=== PATIENT | male | born 1990 | race Caucasian/White ===

== ENCOUNTER 2018-10-15 13:12 | Inpatient (IN) | payer OTHER ==
--- NOTE | 2018-10-15 14:47 | ED ---
Abdominal Pain/Male - HPI Summary HPI Summary: Pt is a 28 y/o male who presents to the ED c/o abdominal pain. For this past week, hes had intermittent LUQ pain that lasts for about 1 hour. The pain feels like sharp bloating, and is almost described as hunger pangs. Each episode happens in the morning, about 7-8 hours after eating. Pt was woken up at 3:00 this morning with the abdominal pain radiating to his left upper back. The pain is accompanied by N/V. He denies any urinary sx or hematochezia. The pain was initially rated a 4/10 in severity, but has since decreased. The pain is made worse with eating, and is better when lying flat or with heat. He has taken Peptobismol, but wasnt able to keep it down. He denies any hx of kidney stones, or abdominal surgery. Pt is accompanied by his sister. BP 141/93 while in room. - History of Current Complaint Chief Complaint: EDAbdPain Stated Complaint: ABD PAIN Time Seen by Provider: 10/15/18 14:28 Hx Obtained From: Patient Onset/Duration: Gradual Onset, Lasting Days - Past week, Still Present Timing: Intermittent Severity Currently: Moderate Pain Intensity: 4 Pain Scale Used: 0-10 Numeric Location: Discrete At: LUQ Radiates: Yes Radiates to: Back Character: Sharp, Other: - bloating Aggravating Factor(s): Food Alleviating Factor(s): Other: - lying flat Associated Signs And Symptoms: Positive: Nausea, Vomiting. Negative: Urinary Symptoms - Allergies/Home Medications Allergies/Adverse Reactions: Allergies Allergy/AdvReac Type Severity Reaction Status Date / Time No Known Allergies Allergy Verified 10/15/18 13:20 Home Medications: Home Medications Dextroamphetamine/Amphetamine [Adderall Xr 20 mg Capsule] 40 mg PO DAILY [History Confirmed 10/15/18] Venlafaxine EXT RELEASE CAP* [Effexor Xr CAP*] 45 mg DAILY 10/15/18 [History Confirmed 10/15/18] PMH/Surg Hx/FS Hx/Imm Hx History: Denies: Hx Kidney Stones Psychiatric History: Reports: Hx Anxiety, Hx Attention Deficit Hyperactivity Disorder, Hx Depression Infectious Disease History: No Infectious Disease History: Denies: Traveled Outside the [place] in Last 30 Days - Family History Known Family History: Positive: Hypertension, Other - hypotension - Social History Alcohol Use: Occasionally Hx Substance Use: No Substance Use Type: Reports: None Hx Tobacco Use: No Smoking Status (MU): Never Smoked Tobacco Review of Systems Positive: Abdominal Pain, Vomiting, Nausea. Negative: Other - hematochezia Genitourinary: Negative All Other Systems Reviewed And Are Negative: Yes Physical Exam - Summary Physical Exam Summary: Appearance: Well-appearing, moderate pain distress, well-nourished Skin: Warm, color reflects adequate perfusion, dry Head: Normal Head/Face inspection, atraumatic Eyes: Conjunctiva clear ENT: Normal inspection Neck: Supple, no nodes, no JVD Respiratory: Lungs clear, normal breath sounds, no respiratory distress Cardio: RRR, No murmur, pulses normal, brisk capillary refill Abdomen: Soft, LUQ tenderness Bowel sounds: Present Musculoskeletal: Strength Intact/ROM intact, no calf tenderness, no edema. Psychological: Normal Neuro: Alert, muscle tone normal, no focal deficit Triage Information Reviewed: Yes Vital Signs On Initial Exam: Initial Vitals Temp Pulse Resp BP Pulse Ox 97.3 F 72 18 145/91 100 10/15/18 13:22 10/15/18 13:22 10/15/18 13:22 10/15/18 13:22 10/15/18 13:22 Vital Signs Reviewed: Yes Diagnostics - Vital Signs Vital Signs Temp Pulse Resp BP Pulse Ox 10/15/18 14:12 72 141/89 97 10/15/18 14:00 84 97 10/15/18 13:42 69 146/98 98 10/15/18 13:41 66 97 10/15/18 13:22 97.3 F 72 18 145/91 100 - Laboratory Result Diagrams: 10/15/18 15:36 10/15/18 15:36 Lab Statement: Any lab studies that have been ordered have been reviewed, and results considered in the medical decision making process. - CT CT A/P CT Interpretation Completed By: Radiologist Summary of CT Findings: The constellation of findings is highly suspicious for acute cholecystitis taking into account the clinical context. Consider ultrasound to further assess for presence of CT occult stones. ED physician reviewed radiology report. - Ultrasound No standard instances Ultrasound Interpretation Completed By: Radiologist Summary of Ultrasound Findings: Gallbladder US: There is a large echogenic calculus in the gallbladder neck which is nonmobile and there is sludge consistent with cholelithiasis. There is abnormal gallbladder wall thickening measuring up to 5 mm and pericholecystic fluid appears to be present. The technologist did not document whether or not there was a positive sonographic Roth sign, however the above findings are suspicious for acute cholecystitis. ED physician reviewed radiology report. Re-Evaluation - Re-Evaluation First Eval Re-Evaluation Time: 18:11 Change: Unchanged Comment: Informed pt of US results. Pain level 1-2/10. Last thing to eat was a hamburger last night. Abdominal Pain Fem Course/Dx - Course Course Of Treatment: Pt is a 28 y/o male who presents to the ED c/o abdominal pain. For this past week, hes had intermittent LUQ pain that lasts for about 1 hour. The pain feels like sharp bloating, and is almost described as hunger pangs. Each episode happens in the morning, about 7-8 hours after eating. Pt was woken up at 3:00 this morning with the abdominal pain radiating to his left upper back. The pain is accompanied by N/V. He denies any urinary sx or hematochezia. A physical exam revealed LUQ tenderness. A CT A/P revealed The constellation of findings is highly suspicious for acute cholecystitis taking into account the clinical context. Consider ultrasound to further assess for presence of CT occult stones. A gallbladder US revealed There is a large echogenic calculus in the gallbladder neck which is nonmobile and there is sludge consistent with cholelithiasis. There is abnormal gallbladder wall thickening measuring up to 5 mm and pericholecystic fluid appears to be present. The technologist did not document whether or not there was a positive sonographic Roth sign, however the above findings are suspicious for acute cholecystitis. UA and bloodwork reviewed. Final dx is acute cholecystitis. Pt will be admitted to Dr. Langston for surgery tomorrow. - Diagnoses Provider Diagnoses: Acute cholecystitis - Provider Notifications Discussed Care Of Patient With: Franki Barnett Time Discussed With Above Provider: 17:39 Instructed by Provider To: Other - Pt has acute cholecystitis, and Dr. Barnett suggests calling surgery. At 18:[address] Langston, who gives the pt the option to have surgery today or next week. She accepts pt for admission, and he will have surgery tomorrow. Discharge - Sign-Out/Discharge Documenting (check all that apply): Patient Departure - Admit - Discharge Plan Condition: Stable Disposition: ADMITTED TO [facility] Referrals: Ramon Reece DO [Primary Care Provider] - - Attestation Statements Document Initiated by Scribe: Yes Documenting Scribe: Lula Bowie Provider For Whom Scribe is Documenting (Include Credential): Rosa Morgan MD Scribe Attestation: Lula Costa, scribed for Rosa Morgan MD on 10/15/18 at 1909. Status of Scribe Document: Ready
[2018-10-15] MEDS ORDERED: Ondansetron INJ* 2 MG/ML VIAL IV ONE (14:57)
[2018-10-15] MEDS ORDERED: Ketorolac INJ* 30 MG/ML 1 ML VIAL IV PUSH ONE (14:59)
[2018-10-15] MEDS ORDERED: NS 0.9% 1000 ML* 2,000 ML IV SCH (15:00)
[2018-10-15 15:47] LABS: ABS Basophils 0 10^3/ul (0-0.2); ABS Eosinophils 0 10^3/ul (0-0.6); ABS Lymphocytes 1.3 10^3/ul (1.0-4.8); ABS Monocytes 0.6 10^3/ul (0-0.8); ABS Neutrophils 8.8 10^3/ul (1.5-7.7); ABS Nucleated RBC 0 10^3/ul; Eosinophil % 0.4 %; Hematocrit 50 % (42-52); Hemoglobin 17.4 g/dl (14.0-18.0); Lymphocyte % 12.4 %; Mean Corpuscular HGB Conc 35 g/dl (31-36); Mean Corpuscular Hemoglobin 32 pg (27-31); Mean Corpuscular Volume 93 fL (80-94); Mean Platelet Volume 7.4 fL (7.4-10.4); Nucleated Red Blood Cells % 0; Platelet Count 323 10^3/ul (150-450); Red Blood Count 5.41 10^6/ul (4.00-5.40); Red Cell Distribution Width 13 % (10.5-15); White Blood Count 10.9 10^3/ul (3.5-10.8)
[2018-10-15 15:53] LABS: INR 0.9 (0.77-1.02)
[2018-10-15 16:04] LABS: Albumin 4.7 g/dL (3.2-5.2); Albumin/Globulin Ratio 1.7 (1-3); BUN/Creatinine Ratio 11.6 (8-20); C Reactive Protein 4.94 mg/L (<8.01); Calcium 9.9 mg/dL (8.6-10.3); EGFR Non-African American 105.9 (>60); Globulin 2.8 g/dL (2-4); Magnesium 2.2 mg/dL (1.9-2.7); Potassium 4.6 mmol/L (3.5-5.0); Total Bilirubin 0.4 mg/dL (0.2-1.0); Total Protein 7.5 g/dL (6.4-8.9)
[2018-10-15 16:55] LABS: Urine Appearance Clear; Urine Bilirubin Negative (Negative); Urine Blood Negative (Negative); Urine Color Straw; Urine Glucose Negative (Negative); Urine Ketones Negative (Negative); Urine Nitrite Negative (Negative); Urine Protein Negative (Negative); Urine Urobilinogen Negative (Negative)
[2018-10-15] MEDS ORDERED: Iohexol 300* (CONTRAST) 10 ML SDV IV ONE (17:09)
[2018-10-15] MEDS ORDERED: Levofloxacin 500 MG IVPREMIX(* 500 MG/100 ML BAG IVPB ONE (18:38)
[2018-10-15] MEDS ORDERED: metroNIDAZOLE IV 500 MG/100ML* 500 MG/100 ML BAG IVPB ONE (18:39)
[2018-10-15] MEDS ORDERED: Ketorolac INJ* 15 MG/ML 1 ML VIAL IV PUSH PRN (18:55)
[2018-10-15] MEDS ORDERED: Ondansetron INJ* 2 MG/ML VIAL IV PRN (18:55)
[2018-10-15] MEDS ORDERED: HYDROmorphone INJ* 0.5 MG/0.5 ML SYRINGE IV PRN (18:55)
[2018-10-15] MEDS: Lactated Ringers 1000 ML Bag* 1,000 ML IV SCH (20:40)
[2018-10-16] MEDS: metroNIDAZOLE IV 500 MG/100ML* 500 MG/100 ML BAG IVPB SCH ×2 (03:14→12:08)
[2018-10-16] MEDS ORDERED: Buffered Lidocaine 0.9% SYRIN* 5 ML/SYR SYRINGE INTRADERM ONE (10:47)
[2018-10-16] MEDS ORDERED: Lactated Ringers 1000 ML Bag* 1,000 ML IV SCH (11:00)
--- NOTE | 2018-10-16 11:40 | PN ---
Progress Note - Progress Note Date of Service: 10/16/18 Note: Surgery Progress Note: S: Patient doing well, no pain, no nausea, no emesis O: Vital Signs: Temp Pulse Resp BP Pulse Ox 98.9 F 86 17 112/64 94 10/16/18 08:30 10/16/18 08:30 10/16/18 08:30 10/16/18 08:30 10/16/18 08:30 Laboratory Results - last 24 hr 10/15/18 10/15/18 10/15/18 15:36 15:36 15:36 WBC 10.9 H RBC 5.41 H Hgb 17.4 Hct 50 MCV 93 MCH 32 H MCHC 35 RDW 13 Plt Count 323 MPV 7.4 Neut % (Auto) 81.4 Lymph % (Auto) 12.4 Hopkins % (Auto) 5.5 Eos % (Auto) 0.4 Baso % (Auto) 0.3 Absolute Neuts (auto) 8.8 H Absolute Lymphs (auto) 1.3 Absolute Monos (auto) 0.6 Absolute Eos (auto) 0 Absolute Basos (auto) 0 Absolute Nucleated RBC 0 Nucleated RBC % 0 INR (Anticoag Therapy) 0.90 Sodium 139 Potassium 4.6 Chloride 104 Carbon Dioxide 30 Anion Gap 5 BUN 10 Creatinine 0.86 Est GFR ( Amer) 128.1 Est GFR (Non-Af Amer) 105.9 BUN/Creatinine Ratio 11.6 Glucose 109 H Lactic Acid Calcium 9.9 Magnesium 2.2 Total Bilirubin 0.40 AST 20 ALT 37 Alkaline Phosphatase 66 Total Creatine Kinase 122 Troponin I 0.00 C-Reactive Protein 4.94 Total Protein 7.5 Albumin 4.7 Globulin 2.8 Albumin/Globulin Ratio 1.7 Amylase 33 Lipase 23 Urine Color Urine Appearance Urine pH Ur Specific Exira Urine Protein Urine Ketones Urine Blood Urine Nitrate Urine Bilirubin Urine Urobilinogen Ur Leukocyte Esterase Urine Glucose 10/15/18 10/15/18 15:36 16:45 WBC RBC Hgb Hct MCV MCH MCHC RDW Plt Count MPV Neut % (Auto) Lymph % (Auto) Hopkins % (Auto) Eos % (Auto) Baso % (Auto) Absolute Neuts (auto) Absolute Lymphs (auto) Absolute Monos (auto) Absolute Eos (auto) Absolute Basos (auto) Absolute Nucleated RBC Nucleated RBC % INR (Anticoag Therapy) Sodium Potassium Chloride Carbon Dioxide Anion Gap BUN Creatinine Est GFR ( Amer) Est GFR (Non-Af Amer) BUN/Creatinine Ratio Glucose Lactic Acid 1.3 Calcium Magnesium Total Bilirubin AST ALT Alkaline Phosphatase Total Creatine Kinase Troponin I C-Reactive Protein Total Protein Albumin Globulin Albumin/Globulin Ratio Amylase Lipase Urine Color Straw Urine Appearance Clear Urine pH 6.0 Ur Specific Exira 1.010 Urine Protein Negative Urine Ketones Negative Urine Blood Negative Urine Nitrate Negative Urine Bilirubin Negative Urine Urobilinogen Negative Ur Leukocyte Esterase Negative Urine Glucose Negative Intake & Output 10/15/18 10/16/18 10/16/18 22:59 06:59 14:59 Intake Total 200 0 Output Total 0 500 Balance 200 -500 Weight 200 lb 200 lb Intake: IV Fluids 200 ABX - FLAGYL 100 ABX - LEVOFLOXACIN 100 Oral 0 0 Output: Urine 0 500 Abd: soft, NTND A/P: 28 M with acute cholecystitis - OR for lap ko today
[2018-10-16] MEDS: Lactated Ringers 1000 ML Bag* 1,000 ML IV SCH (12:09)
--- NOTE | 2018-10-16 13:38 | HP ---
HISTORY AND PHYSICAL: DATE OF ADMISSION: 10/15/18 SERVICE: General Surgery. ATTENDING SURGEON: Dr. Joanna Langston. ADMISSION DIAGNOSIS: Acute cholecystitis. HISTORY OF PRESENT ILLNESS: Mr. Zuniga is a 28-year-old gentleman who came to the emergency room complaining of 1 day of severe abdominal pain. He complained mostly of having left upper quadrant abdominal pain. He does endorse for the past week having the same intermittent abdominal pain as well as intermittent nausea, vomiting every 1 to 2 days. Prior to this, he has never had this type of pain before. The patient said yesterday he did vomit several times prior to coming to the emergency room; however, after he came in to the emergency room and received some pain medications, he has felt better and he does not have any pain currently. In the emergency room, he had imaging done that showed thickening of the gallbladder wall as well as a large gallstone in the neck of the gallbladder. PAST MEDICAL HISTORY: None. PAST SURGICAL HISTORY: Left knee arthroscopy as a teenager. MEDICATIONS: 1. Adderall 40 mg p.o. daily. 2. Effexor 45 mg p.o. daily. ALLERGIES: No known drug allergies. FAMILY HISTORY: Positive for hypertension. SOCIAL HISTORY: Denies smoking. No recreational drug use. Occasional alcohol. REVIEW OF SYSTEMS: Negative except for previous abdominal pain, now no abdominal pain. PHYSICAL EXAMINATION VITAL SIGNS: Temperature is 98.9, pulse is 86, respiratory rate is 17, O2 sat is 94% O2 on room air, blood pressure is 112/64. HEENT: Normocephalic, atraumatic. RESPIRATORY: No increased work of breathing. ABDOMEN: Soft, nontender, nondistended. EXTREMITIES: No edema. LABORATORY DATA: Laboratory values on 10/15/18, white blood cell count of 10.9 , hemoglobin 17.4, hematocrit is 50, platelets are 323. Sodium is 139, potassium is 4.6, chloride is 104, CO2 is 30, BUN is 10, creatinine is 0.86, glucose is 109. Total bilirubin is 0.4. AST is 20, ALT is 37, alkaline phosphatase is 66. Amylase is 33, lipase is 23. RADIOLOGY: On 10/15/18, CT abdomen and pelvis, impression: The consultation and findings are highly suspicious for acute cholecystitis, the gallbladder is distended with thickened wall and pericholecystic fluid, no biliary dilatation is evident, no conspicuous calcified gallbladder or common duct stones, unremarkable pancreas. Right upper quadrant ultrasound on 10/15/18, there is a large echogenic calculus in the gallbladder neck which is nonmobile, and there is sludge consistent with cholelithiasis, there is abnormal gallbladder wall thickening measuring up to 5 mm, and pericholecystic fluid appears to be present. The common bile duct is 3 mm with no visible choledocholithiasis. ASSESSMENT AND PLAN: Mr. Zuniga is a 28-year-old gentleman with a history of left upper quadrant abdominal pain for 1 week as well as nausea and vomiting , who came to the emergency room and was found to have normal LFTs and a very mildly elevated white count of 10.9 and imaging on right upper quadrant ultrasound as well as CT scan was consistent with acute cholecystitis and a fairly large gallstone in the neck of the gallbladder, confirming a diagnosis of acute cholecystitis. The patient was admitted for IV antibiotics and he has been n.p.o. after midnight. Plan is to perform a laparoscopic cholecystectomy today. I reviewed the risks, benefits, and alternatives of the surgery with the patient. The risks included but are not limited to bleeding, wound infection, and injury to structures nearby. I reviewed that it is possible that such injuries include but are again not limited to injuries to the intestine, to the liver, and to the common bile duct and any of these injuries may involve more procedures or re- operations. There is also very small risk of having bile leak after surgery, which also may involve interventions again. The patient understands all these risks and wishes to proceed. I spent a total of 60 minutes in total coordination of care, over half of which was face to face with patient discussing diagnosis and care of acute cholecystitis. [id number]/[facility] #: [id number] BERNICE
[2018-10-16] MEDS ORDERED: Propofol* 10 MG/ML 20 ML BTL ONE (13:43)
[2018-10-16] MEDS ORDERED: Lidocaine 2% PF * 5 ML VIAL ONE (13:44)
[2018-10-16] MEDS ORDERED: Rocuronium* 10 MG/ML VIAL ONE (13:44)
[2018-10-16] MEDS ORDERED: ceFAZolin 2 GM PREMIX in ORs 2 GM/50 ML BAG IVPB ONE (13:45)
[2018-10-16] MEDS ORDERED: fentaNYL* 50 MCG/ML 2 ML VIAL (100 MCG VIAL) ONE (13:45)
[2018-10-16] MEDS ORDERED: Midazolam* 1 MG/ML 2 ML VIAL (2 MG) ONE (13:45)
[2018-10-16] MEDS ORDERED: Bupivacaine 0.25% SDV PF* 10 ML VIAL INJ ONE (15:11)
[2018-10-16] MEDS ORDERED: Ketorolac INJ* 30 MG/ML 1 ML VIAL ONE (15:40)
[2018-10-16] MEDS ORDERED: Dexamethasone IV* 4 MG/ML 1 ML (4 MG) ONE (15:40)
[2018-10-16] MEDS ORDERED: Metoclopramide IV* 5 MG/ML 2 ML VIAL ONE (15:40)
[2018-10-16] MEDS ORDERED: Ondansetron INJ* 2 MG/ML VIAL ONE (15:40)
[2018-10-16] MEDS ORDERED: Neostigmine Methylsulfate* 1 MG/ML 10 ML VIAL (1 mg/ml) ONE (16:27)
[2018-10-16] MEDS ORDERED: Glycopyrrolate IV* 0.2 MG/ML 1 ML VIAL ONE (16:27)
[2018-10-16] MEDS ORDERED: Naloxone* 0.4 MG/ML 1 ML VIAL IV PRN (17:15)
[2018-10-16] MEDS ORDERED: Acetaminophen IV 1GM/100ML * 1,000 MG/100 ML VIAL IVPB ONE (17:15)
[2018-10-16] MEDS ORDERED: DiMENhydriNATE IV* 50 MG/ML VIAL IV PUSH PRN (17:15)
[2018-10-16] MEDS ORDERED: HYDROmorphone INJ1* 1 MG/ML SYRINGE IV PRN (17:15)
[2018-10-16] MEDS ORDERED: DiMENhydriNATE IV* 50 MG/ML VIAL ONE (17:19)
[2018-10-16] MEDS ORDERED: Acetaminophen IV 1GM/100ML * 100 ML ONE (17:37)
[2018-10-16] MEDS ORDERED: HYDROmorphone INJ1* 1 MG/ML SYRINGE ONE (17:37)
[2018-10-16] MEDS ORDERED: oxyCODONE TAB* 5 MG TAB ONE (17:56)
[2018-10-16] MEDS: oxyCODONE TAB* 5 MG TAB PO PRN ×2 (17:57→18:02)
[2018-10-16 18:51] VITALS: BP 129/76
[2018-10-16] MEDS ORDERED: Levofloxacin 500 MG IVPREMIX(* 500 MG/100 ML BAG IVPB SCH (20:30)
--- NOTE | 2018-10-16 23:24 | OP ---
OPERATIVE REPORT: DATE OF OPERATION: 10/16/18 DATE OF : 89 SERVICE: General Surgery. SURGEON: Joanna Langston MD BUGGY LADLE TENDER: Curry Perez MD ANESTHESIOLOGIST: Dr. Ann. ANESTHESIA: General endotracheal anesthesia. PRE-OP DIAGNOSIS: Acute cholecystitis. POST-OP DIAGNOSIS: Acute cholecystitis. OPERATIVE PROCEDURE: Laparoscopic cholecystectomy. SPECIMEN: Gallbladder. INDICATIONS FOR SURGERY: Mr. Zuniga is a 28-year-old gentleman with no significant past medical history. He presented with 1 week of right upper quadrant and left upper quadrant abdominal pain. He was found on imaging to have an inflamed, thickened gallbladder wall, pericholecystic fluid as well as a large stone in the neck of the gallbladder. Given these findings, he was diagnosed with acute cholecystitis. Informed consent was obtained for a laparoscopic cholecystectomy. He understood the risks, benefits, and alternatives of the procedure and he wished to proceed. DESCRIPTION OF PROCEDURE: The patient was brought back to the operating room and placed on the operating table in a supine position. Venodyne boots were placed on the bilateral lower extremities for DVT prophylaxis. Antibiotics were administered prior to incision. General endotracheal anesthesia was induced and the patient's left arm was tucked and the abdomen was prepped and draped in normal sterile fashion. Prior to beginning the procedure, a time-out was performed verifying the patient's name, MR number, and the procedure to be performed. The patient had a very small umbilical hernia and local anesthesia with 0.25% Marcaine was administered at the supraumbilical area. The skin was divided in vertical fashion down to stalk of the umbilicus. The small hernia was opened with Kellys and the abdomen was entered under direct visualization. A 0-Vicryl suture was placed in a figure of 8 fashion to secure the trocar and to later close this incision. A 10-mm trocar was placed into this incision. General inspection of the abdomen showed that there was no injury that had been made upon entry into the abdomen. Next, under direct visualization, the remaining three 5-mm trocars were placed, 1 in the right upper mid abdomen just to the right of the falciform, 1 in the right mid abdomen and 1 in the right lateral abdomen. Next, a grasper was used to grab the fundus of the gallbladder over the liver and another grasper was used to grasp the infundibulum. There was a large amount of fat that was stuck to the infundibulum, which was retracted down using combination of blunt dissection and electrocautery. The peritoneum of the gallbladder was divided using electrocautery on either side of the gallbladder. With great care, the cystic duct was isolated, skeletonized and the critical view was obtained with visualization of the liver between the gallbladder and the cystic duct. There was no cystic artery that was definitely identified and it may have been overlying the cystic duct itself. Once the critical view was obtained, the cystic duct was clipped 3 times, 2 times proximally and 1 time distally and it was divided. After this was done, the gallbladder was taken off of the liver bed using electrocautery and placed in an Endo Catch bag and removed from the abdomen. Inspection of the abdomen after this showed that the 2 clips that remained on the cystic duct stump remained intact. There was no evidence of bleeding on the liver bed and the right upper quadrant was irrigated and the supraumbilical port site was closed under direct visualization using the previously placed 0-Vicryl suture. The remaining trocars were removed and desufflation was obtained. All the skin was closed using 4-0 Monocryl sutures. Sterile dressing was placed. The patient's anesthesia was reversed and he was taken to the PACU in stable condition. At the end of the case all counts were correct and I was present during the entirety of the case. Estimated blood loss was 10 cc. [id number]/[facility] #: [id number] BERNICE
== END 2018-10-16 18:55 | disposition home or self-care (01) | DRG 419 ==
LOC: ED 13:12 → SSU 18:55
PROVIDERS: ADMIT Surgery; ATTEND Surgery
PROC: 0FT44ZZ Resection of Gallbladder, Percutaneous Endoscopic Approach (ICD-10-PCS; principal; 2018-10-16 13:00)
DX: K81.0 Acute cholecystitis (principal); F41.9 Anxiety disorder, unspecified; F90.9 Attention-deficit hyperactivity disorder, unspecified type; F32.9 Major depressive disorder, single episode, unspecified; Z79.899 Other long term (current) drug therapy; Z82.49 Family history of ischemic heart disease and other diseases of the circulatory system
CPT/HCPCS: 36415; 74177; 76705; 80053; 81003; 82150; 82550; 83605; 83690; 83735; 84484; 85025; 85610; 86140; 99284; A9270-GY; J0690; J1100; J1170; J1240; J1885; J1956; J2250; J2405; J2704; J2710; J2765; J3010; J3490; Q9967